=== PATIENT | female | born 1970 | race Caucasian/White ===

== ENCOUNTER 2019-01-02 20:30 | Outpatient (REF) | payer BC, SELFPAY ==
[2019-01-02 21:16] LABS: ALT 25 U/L (12-78); AST 17 U/L (15-37); Albumin 4.4 g/dL (3.4-5.0); Alkaline Phosphatase 82 U/L (46-116); Anion Gap 8.3 mmol/L (3-11); BUN 13 mg/dL (7-18); Bilirubin, Total 0.2 mg/dL (0.2-1.0); CO2 31.7 mmol/L (21.0-32.0); CREATININE 0.79 mg/dL (0.55-1.02); Calcium 9.7 mg/dL (8.5-10.1); Chloride 103 mmol/L (98-107); Glucose 90 mg/dL (70-100); Potassium 4.2 mmol/L (3.5-5.1); Sodium 143 mmol/L (136-145); TSH (W/Ref FT4) 1.08 uIU/mL (0.358-3.74); Total Protein 7.8 g/dL (6.4-8.2)
[2019-01-02 21:17] LABS: Abs Immature Grans 0.01 k/cumm (0.0-0.09); Absolute Basophil Count 0.03 k/cumm (0.0-0.2); Absolute Eosinophil Count 0.02 k/cumm (0.0-0.7); Absolute Lymphocyte Count 0.92 k/cumm (1.2-3.4); Absolute Monocyte Count 0.68 k/cumm (0.11-0.7); Basophils % 0.6; Eosinophils % 0.4; HCT 38.7 % (36.0-46.0); HGB 12.8 g/dL (12.0-15.5); Immature Grans % 0.2; Lymphocytes % 17.5; Mean Corp. HGB Concentration 33.1 g/dL (32.0-36.0); Mean Corpuscular Hemoglobin 30.3 pg (27.0-33.0); Mean Corpuscular Volume 91.7 fL (80-95); Mean Platelet Volume 11.3 fL (8.0-11.0); Monocytes % 12.9; Neutrophils % 68.4; Platelet Count 252 x1000/uL (130-400); RBC 4.22 m/cumm (4.00-5.20); RBC Distribution Width 13.5 % (11.7-14.6); White Blood Cell Count 5.26 k/cumm (4.4-10.8)
[2019-01-05 05:53] LABS: Vitamin D 25 Total 16.9 ng/ml (30-100)
== END 2019-01-02 20:50 ==
LOC: NCHCN 20:30
PROVIDERS: PCP Family Medicine; Visit Provider Family Medicine
DX: E55.9 Vitamin D deficiency, unspecified (principal); R68.89 Other general symptoms and signs
CPT/HCPCS: 80053; 82306; 84443; 85025

== ENCOUNTER 2019-07-03 00:25 | Outpatient (CLI) | payer BC, SELFPAY ==
--- NOTE | 2019-07-03 07:45 | DI.MAMMO_ITS ---
SYMPTOM/DIAGNOSIS: SCREENING, Z12.31 YEARLY BILATERAL SCREENING MAMMOGRAM: Mammograms were interpreted according to the usual protocol including computer analysis with CAD system, tomosynthesis and C view imaging. Comparison is made with exams from 2013 through 2016. The breasts are composed of heterogeneously dense fibroglandular tissue, breast density category C. No suspicious masses or suspicious microcalcifications are seen. There has been no significant change. IMPRESSION: Category 1, negative mammogram. Yearly screening mammography is recommended. Breast density category C. MQSA ASSESSMENT OF FINDINGS: Negative. Category 1. Patient will receive a letter notifying them of these results. Bi-RADS category C. The breasts are heterogeneously dense, which may obscure small masses.
== END 2019-07-03 00:45 ==
PROVIDERS: PCP Family Medicine; Visit Provider Family Medicine
DX: Z12.31 Encounter for screening mammogram for malignant neoplasm of breast (principal)
CPT/HCPCS: 77063; 77067

== ENCOUNTER 2020-06-02 18:42 | Outpatient (REF) | payer BC, SELFPAY ==
[2020-06-06 15:07] LABS: SARS-CoV-2 RNA Undetected (Undetected); SARS-CoV-2 Specimen Source Nasopharynx
== END 2020-06-02 19:02 ==
LOC: NCHCN 18:42
PROVIDERS: PCP Family Medicine; Visit Provider Physician Assistant
DX: R53.83 Other fatigue (principal)
CPT/HCPCS: U0003

== ENCOUNTER 2020-07-14 09:46 | Outpatient (REF) | payer BC, SELFPAY ==
--- NOTE | 2020-07-14 09:15 | PAPFT_PTH ---
PATIENT: Jami Beyer LOC: [facility] U#:[id number] AGE/SX: 50/F ROOM: RE07/14/[address]: NATE Melendez : 1970 BED: DIS: 07/14/2020 SPEC #: [id number] RECD: 07/14/20 12:59 STATUS: ARISTIDES REQ #: [id number] OLGA LIDIA: 07/14/20 09:[address]: Claudia Cuellar DEPT: [facility] Cytology RECD BY: Luh Cooper ENTERED: 07/14/20 12:59 SP TYPE: PAPFT OTHR DR: Lauryn Brown Tissues: 1 - CX/ENDOCX FOR PAP SMEARS Procedures: PAP THIN PREP/UVM Screening HPV DNA PROBE Comments: [id number]
== END 2020-07-14 10:06 ==
LOC: LBN 09:46
PROVIDERS: PCP Family Medicine; Visit Provider Nurse Practitioner Family
DX: Z12.4 Encounter for screening for malignant neoplasm of cervix (principal); Z11.51 Encounter for screening for human papillomavirus (HPV)
CPT/HCPCS: 88142; 87624

== ENCOUNTER 2020-10-04 20:52 | Outpatient (REF) | payer BC, SELFPAY ==
[2020-10-07 09:36] LABS: COVID-19 RT-PCR Result NEGATIVE (Negative)
== END 2020-10-04 21:12 ==
LOC: NCHCN 20:52
PROVIDERS: PCP Family Medicine; Visit Provider Family Medicine
DX: J06.9 Acute upper respiratory infection, unspecified (principal)
CPT/HCPCS: U0003

== ENCOUNTER 2021-06-23 15:41 | Outpatient (REF) | payer BC, SELFPAY ==
[2021-06-24 12:46] LABS: COVID-19 RT-PCR UVMMC Result Negative (Negative)
== END 2021-06-23 15:42 | disposition home or self-care (01) ==
LOC: NCHCN 15:41
PROVIDERS: PCP Family Medicine; Visit Provider Family Medicine
DX: Z20.822 Contact with and (suspected) exposure to COVID-19 (principal)
CPT/HCPCS: U0003

== ENCOUNTER 2021-10-20 01:50 | Outpatient (CLI) | payer BC, SELFPAY ==
--- NOTE | 2021-10-20 12:00 | DI.MAMMO_ITS ---
Exam(s) MAMMO SCREENING EXAM: MAMMO SCREENING CLINICAL HISTORY: screening,Z12.39 TECHNIQUE: Bilateral full field digital CC and MLO mammographic images were obtained with 3D tomosyn thesis and utilizing computer aided detection (CAD). COMPARISON: Available for comparison. FINDINGS: Masses/Architectural Distortion: None seen. Microcalcifications: No suspicious pleomorphic-type are seen. Skin Thickening/Nipple Retraction: None. IMPRESSION: 1. No significant interval change with no specific features of malignancy noted. 2. Unless there is more urgent need, screening mammography is recommended, as per [place] [employer] guidelines. BI-RADS Category 1 - Negative Breast Density - Category C - Heterogeneously dense Breast density category C or D implies that the patient has dense breast tissue. Dense breast tissue is very common and is not abnormal but dense breast tissue can make it harder to find cancer on a ma mmogram. Also, dense breast tissue may increase their breast cancer risk. This information about the result of the mammogram report was provided to the patient to raise their awareness. Use this report when you speak with the patient about their risks for breast cancer, which includes their family hist ory. At that time, you may recommend for more screening tests (Ultrasound or MRI) as they might be us eful based on their risk. A negative radiographic report should not delay biopsy if a dominant or clinically suspicious mass is present. Up to ten percent of cancers are not identified on mammography. A negative report may reinforce clinical impression. Adenosis and dense breasts may obscure an underlying neoplasm. False positive reports average 6 to 10%. Patient will receive a letter notifying them of these results.
== END 2021-10-20 02:10 ==
PROVIDERS: PCP Family Medicine; Visit Provider Nurse Practitioner Family
DX: Z12.31 Encounter for screening mammogram for malignant neoplasm of breast (principal); R92.8 Other abnormal and inconclusive findings on diagnostic imaging of breast
CPT/HCPCS: 77063; 77067

== ENCOUNTER 2022-01-23 15:21 | Outpatient (REF) | payer BC, SELFPAY ==
[2022-01-23 21:41] LABS: Hemoglobin A1C 5.6 % (<5.7)
[2022-01-23 21:44] LABS: Calculated LDL 155 mg/dL (<100); Cholesterol 247 mg/dL (<200); HDL Cholesterol 51 mg/dL (40-60); Triglyceride 207 mg/dL (<150)
== END 2022-01-23 15:22 | disposition home or self-care (01) ==
LOC: NCHCN 15:21
PROVIDERS: PCP Family Medicine; Visit Provider Family Medicine
DX: Z00.00 Encounter for general adult medical examination without abnormal findings (principal); Z13.220 Encounter for screening for lipoid disorders; Z13.1 Encounter for screening for diabetes mellitus
CPT/HCPCS: 80061; 83036

== ENCOUNTER 2023-02-12 13:00 | Outpatient (REF) | payer MEDICAID, SELFPAY ==
[2023-02-12 15:12] LABS: Anion Gap 9.1 mmol/L (3-11); BUN 12 mg/dL (7-18); CO2 25.9 mmol/L (21.0-32.0); CREATININE 0.9 mg/dL (0.55-1.02); Calcium 9.6 mg/dL (8.5-10.1); Calculated LDL 179 mg/dL (<100); Chloride 105 mmol/L (98-107); Cholesterol 260 mg/dL (<200); Estimated GFR 75.97 (mL/min/1.73m2); Glucose 99 mg/dL (74-106); HDL Cholesterol 52 mg/dL (40-60); Potassium 4.6 mmol/L (3.5-5.1); Sodium 140 mmol/L (136-145); Triglyceride 149 mg/dL (<150)
[2023-02-12 16:17] LABS: Hemoglobin A1C 5.6 % (<5.7)
[2023-02-12 16:19] LABS: Vitamin D 25 Total 13.1 ng/mL (30-100)
== END 2023-02-12 13:01 | disposition home or self-care (01) ==
LOC: NCHCN 13:00
PROVIDERS: PCP Family Medicine; Visit Provider Family Medicine
DX: Z00.00 Encounter for general adult medical examination without abnormal findings (principal); Z13.220 Encounter for screening for lipoid disorders; Z13.1 Encounter for screening for diabetes mellitus; N95.1 Menopausal and female climacteric states; R10.9 Unspecified abdominal pain; E55.9 Vitamin D deficiency, unspecified
CPT/HCPCS: 80048; 80061; 82306; 83036

== ENCOUNTER 2023-02-22 00:33 | Outpatient (CLI) | payer MEDICAID, SELFPAY ==
--- NOTE | 2023-02-22 07:45 | DI.MAMMO_ITS ---
Exam(s) MAMMO SCREENING EXAM: MAMMO SCREENING CLINICAL HISTORY: screening,z12.39. TECHNIQUE: Bilateral full field digital CC and MLO mammographic images were obtained with 3D tomosyn thesis and utilizing computer aided detection (CAD). COMPARISON: Prior mammograms were reviewed. FINDINGS: There has been no significant change in the appearance and distribution of the fibroglandular tissue. There are no obvious new spiculated masses nor malignant appearing microcalcification groups. There is no significant architectural distortion nor skin thickening-retraction. IMPRESSION: No radiographic evidence of malignancy. BI-RADS Category 1 - Negative Breast Density - Category C - Heterogeneously dense Breast density Category C or D implies that the patient has dense breast tissue. Dense breast tissue can make it harder to find cancer on a mammogram. Dense breast tissue is also associated with an incr eased risk of breast cancer. This information about the result of the mammogram report was provided to the patient to raise their awareness. Use this report when you speak with the patient about their risks for breast cancer, which includes their family history. At that time, you may recommend additional screening tests (Ultrasoun d or MRI) as these tests may add significant information. A negative radiographic report should not delay biopsy if a dominant or clinically suspicious mass is present. Up to ten percent of cancers are not identified on mammography. A negative report may reinforce clinical impression. Adenosis and dense breasts may obscure an underlying neoplasm. False positive reports average 6 to 10%. Patient will receive a letter notifying them of these results.
== END 2023-02-22 00:53 ==
LOC: DI 00:33
PROVIDERS: PCP Family Medicine; Visit Provider Nurse Practitioner Women's Health
DX: Z12.31 Encounter for screening mammogram for malignant neoplasm of breast (principal)
CPT/HCPCS: 77063; 77067

== ENCOUNTER 2023-06-07 13:27 | Outpatient (REF) | payer MEDICAID, SELFPAY | END 2023-06-07 13:28 | disposition home or self-care (01) | LOC: NCHCN 13:27 | PROVIDERS: PCP Family Medicine; Visit Provider Family Medicine | DX: E55.9 Vitamin D deficiency, unspecified (principal) | CPT/HCPCS: 82306 ==

== ENCOUNTER 2024-01-22 14:31 | Outpatient (REF) | payer MEDICAID, SELFPAY ==
--- NOTE | 2024-01-22 14:20 | PAPFT_PTH ---
PATIENT: Jami Beyer LOC: [facility] U#:[id number] AGE/SX: 53/F ROOM: RE01/22/[address]: Marline Roque NP : 1970 BED: DIS: 01/22/2024 SPEC #: [id number] RECD: 01/22/24 17:34 STATUS: ARISTIDES REYessi #: [id number] OLGA LIDIA: 01/22/24 14:[address]: Marline Roque NP DEPT: [facility] Cytology RECD BY: Luh Cooper ENTERED: 01/22/24 17:34 SP TYPE: PAPFT OTHR DR: Lauryn Brown Tissues: 1 - CX/ENDOCX FOR PAP SMEARS Procedures: PAP THIN PREP/UVM Screening HPV DNA PROBE Comments: [id number]
== END 2024-01-22 14:32 | disposition home or self-care (01) ==
LOC: LBN 14:31
PROVIDERS: PCP Family Medicine; Visit Provider Nurse Practitioner Women's Health
DX: Z12.4 Encounter for screening for malignant neoplasm of cervix (principal); Z11.51 Encounter for screening for human papillomavirus (HPV)
CPT/HCPCS: 88142; 87624

== ENCOUNTER 2024-05-20 08:23 | Outpatient (REF) | payer MEDICAID, SELFPAY ==
[2024-05-20 17:38] LABS: Vitamin D 25 Total 33.2 ng/mL (30-100)
== END 2024-05-20 08:24 | disposition home or self-care (01) ==
LOC: NCHCN 08:23
PROVIDERS: PCP Family Medicine; Visit Provider Family Medicine
DX: E55.9 Vitamin D deficiency, unspecified (principal)
CPT/HCPCS: 82306; 82607

== ENCOUNTER 2024-07-03 15:39 | Outpatient (REF) | payer MEDICAID, SELFPAY ==
[2024-07-03 21:45] LABS: HCT 39.4 % (36.0-46.0); HGB 13.3 g/dL (11.2-15.7); MCH 34.1 pg (27.0-33.0); MCHC 33.8 % (32.0-36.0); MCV 101 fL (80-95); Platelet Count 279 10^3/uL (130-400); RDW 12.5 % (11.7-14.6); RDW-SD 46.6 fL; WBC 7.94 10^3/uL (4.4-10.8)
[2024-07-03 21:49] LABS: ESR 13 mm/hr (0-30)
[2024-07-03 22:05] LABS: Anion Gap 10.3 mmol/L (3-11); BUN 11 mg/dL (7-18); CO2 26.7 mmol/L (21.0-32.0); CREATININE 0.9 mg/dL (0.55-1.02); Calcium 9.8 mg/dL (8.5-10.1); Chloride 99 mmol/L (98-107); Estimated GFR 75.03 (mL/min/1.73m2); Glucose 88 mg/dL (74-106); Sodium 136 mmol/L (136-145); TSH (W/Ref FT4) 0.95 uIU/mL (0.36-3.74)
[2024-07-03 22:06] LABS: C-Reactive Protein < 0.50 mg/dL (<or=0.5)
== END 2024-07-03 15:40 | disposition home or self-care (01) ==
LOC: NCHCN 15:39
PROVIDERS: PCP Family Medicine; Visit Provider Family Medicine
DX: R53.83 Other fatigue (principal)
CPT/HCPCS: 80048; 85027; 85652; 84443; 86140

== ENCOUNTER 2025-03-17 02:05 | Outpatient (CLI) | payer MEDICAID, SELFPAY ==
--- NOTE | 2025-03-17 15:45 | DI.MAMMO_ITS ---
Exam(s) MAMMO SCREENING EXAM: MAMMO SCREENING CLINICAL HISTORY: screening TECHNIQUE: Bilateral full field digital CC and MLO mammographic images were obtained with 3D tomosyn thesis and utilizing computer aided detection (CAD). COMPARISON: Available for comparison. FINDINGS: Masses/Architectural Distortion: No suspicious masses or areas of architectural distortion are presen t. Microcalcifications: No suspicious pleomorphic-type are seen. Skin Thickening/Nipple Retraction: None. IMPRESSION: 1. No significant interval change with no specific features of malignancy noted. 2. Unless there is more urgent need, screening mammography is recommended, as per [place] [employer] guidelines. BI-RADS Category 1 - Negative Breast Density - Category B - There are scattered areas of fibroglandular density. Breast density Category C or D implies that the patient has dense breast tissue. Dense breast tissue can make it harder to find cancer on a mammogram. Dense breast tissue is also associated with an incr eased risk of breast cancer. This information about the result of the mammogram report was provided to the patient to raise their awareness. Use this report when you speak with the patient about their risks for breast cancer, which includes their family history. At that time, you may recommend additional screening tests (Ultrasoun d or MRI) as these tests may add significant information. A negative radiographic report should not delay biopsy if a dominant or clinically suspicious mass is present. Up to ten percent of cancers are not identified on mammography. A negative report may reinforce clinical impression. Adenosis and dense breasts may obscure an underlying neoplasm. False positive reports average 6 to 10%. Patient will receive a letter notifying them of these results.
== END 2025-03-17 02:25 ==
LOC: DI 02:05
PROVIDERS: PCP Family Medicine; Visit Provider Nurse Practitioner Women's Health
DX: Z12.31 Encounter for screening mammogram for malignant neoplasm of breast (principal); R92.323 Mammographic fibroglandular density, bilateral breasts
CPT/HCPCS: 77063; 77067